=== PATIENT | male | born 1965 | race Caucasian/White ===

== ENCOUNTER 2016-09-13 13:36 | Emergency (ER) | payer OTHER ==
[2016-09-13] MEDS ORDERED: RABIES VACC, HUMAN DIPLOID/PF 2.5 UNIT VIAL (RABAVERT) IM ONE (13:59)
[2016-09-13] MEDS ORDERED: RABIES IMMUNE GLOBULIN 300 UNIT/2 ML VIAL IM ONE (13:59)
--- NOTE | 2016-09-13 14:00 | EDPHY ---
H & P Time Seen by Provider: 09/13/16 13:50 HPI/ROS: CHIEF COMPLAINT: Bat exposure HISTORY OF PRESENT ILLNESS: 6:30 p.m. on Friday about was in the house. It went into the bedroom. Then it landed on the printer and the patient hit with a shoe and put into yogurt container. They took it to the health department who were unable to assess the bat for rabies. Presents with health department recommendation for post exposure prophylaxis. REVIEW OF SYSTEMS: asymptomatic PAST MEDICAL HISTORY: Negative Social history: Here with remainder of family General Appearance: Alert and conversant, cooperative. Emergency Department course/MDM: Rationale for post exposure rabies prophylaxis discussed and consented. Discussed with Dr. Elizabeth Hernandez from [facility] who will arrange the remainder of the series. Smoking Status: Light smoker Constitutional: Initial Vital Signs Temperature (C) 36.1 C 09/13/16 13:43 O2 Delivery Mode Room Air Allergies/Adverse Reactions: No Known Allergies Allergy (Unverified 09/13/16 13:43) Home Medications: Medication Instructions Recorded Mv,Calc,Iron,Min/Folic/[id number] 09/13/16 MDM/Departure - MDM Medications Given: Discontinued Medications Rabies Immune Globulin (Imogam Rabies Ht 2ml) 2,400 unit IM .ONCE ONE Stop: 09/13/16 14:00 Last Admin: 09/13/16 15:49 Dose: 2,400 unit Rabies Vaccine Human Diploid Cell (Rabavert) 2.5 unit IM .ONCE ONE Stop: 09/13/16 14:00 Last Admin: 09/13/16 15:28 Dose: 2.5 unit - Depart Disposition: Home, Routine, Self-Care Clinical Impression: Exposure to bat without known bite Condition: Good Instructions: Rabies Vaccine (By injection), Rabies Vaccine (ED) Additional Instructions: [facility] will call you. You need follow-up vaccine on FridaySeptember 16, FridaySeptember 20, and FridaySeptember 27. They can arrange this. Referrals: UNKNOWN,PCP NAME [Other] - As per Instructions Elizabeth Hernandez MD [Medical Doctor] - As per Instructions
[2016-09-13 14:43] VITALS: BP 141/89; PULSE 82; RESP 18; TEMP 98.1; O2SAT 94
== END 2016-09-13 15:50 | disposition home or self-care (01) ==
PROC: 3E0234Z Introduction of Serum, Toxoid and Vaccine into Muscle, Percutaneous Approach (ICD-10-PCS; principal; 2016-09-13)
DX: Z20.3 Contact with and (suspected) exposure to rabies (principal); F17.200 Nicotine dependence, unspecified, uncomplicated; Z23 Encounter for immunization